=== PATIENT | female | born 1995 | race Caucasian/White ===

== ENCOUNTER 2021-04-02 08:19 | Emergency (ER) | payer OTHER, SELFPAY ==
[2021-04-02 08:25] VITALS: BP 142/99; PULSE 79; RESP 16; TEMP 36.6; O2SAT 99
--- NOTE | 2021-04-02 08:43 | ED.EAR ---
HPI - Ear Problem General Chief complaint: Ear Stated complaint: ear pain and tooth pain Source: patient Mode of arrival: ambulatory Limitations: no limitations History of Present Illness HPI Narrative: Patient is a 25-year-old female who presents complaining of bilateral ear pain. She reports decreased hearing and right ear. She reports using [id number] ear medication for pain. She denies fever. She reports taking ibuprofen. She denies significant medical history. She denies all other complaints at this time. MD Complaint: ear pain and decreased hearing Related Data Home Medications Medication Instructions Recorded Confirmed norethindrone-e.estradiol-iron 1 tablet PO DAILY 04/02/21 04/02/21 [06/09 (28)] Allergies Allergy/AdvReac Type Severity Reaction Status Date / Time amoxicillin Allergy Mild Unknown Verified 04/02/21 08:47 erythromycin base Allergy Mild [place], Verified 04/02/21 08:47 CHILD Penicillins Allergy Mild UNKNOWN, Verified 04/02/21 08:47 CHILD Review of Systems Review of Systems: CONSTITUTIONAL: Denies fever, chills, or sweats. EYES: Denies visual changes, redness, or discharge. ENT: Reports bilateral ear discomfort, decreased hearing and right ear CARDIOVASCULAR: Denies chest pain, palpitations, or edema. RESPIRATORY: Denies cough or dyspnea. GASTROINTESTINAL: Denies abdominal pain, nausea, vomiting, or diarrhea. GENITOURINARY: Denies dysuria or hematuria. SKIN: Denies rash or itching. MUSCULOSKELETAL: Denies back pain, joint pain, or myalgia. NEUROLOGIC: Denies headache, numbness, dizziness, or weakness. PSYCHIATRIC: Denies anxiety or depression. [facility] Social History Social History (Updated 04/02/21 @ 08:53 by KATIE Beard) Smoking status: Never smoker Alcohol intake: never Substance use: never Living arrangements: with family Comments At the time of signature, I have reviewed and agree with nursing past medical, surgical, social, and family history unless otherwise noted. Please see nursing chart for further information. There is no relevant family history pertinent to the presenting complaint. Exam Narrative: GENERAL: Well-appearing, well-nourished, and in no acute distress. HEAD: Normocephalic, atraumatic. EYES: EOMI. No redness or drainage. Conjunctiva are normal. ENT: Mucous membranes pink and moist. Cerumen impaction in bilateral ears, unable to visualize TM bilaterally at this time. NECK: AROM. Supple. No lymphadenopathy. CHEST: No respiratory distress. HEART: Regular rate and rhythm. EXTREMITIES: Normal range of motion. SKIN: Warm, dry, no rash. NEURO: No focal deficits. Alert and oriented x3. Gait steady. PSYCH: Normal affect. No signs of depression or anxiety. Course Vital Signs Vital signs: Vital Signs Temperature 36.6 C 04/02/21 08:25 Pulse Rate 79 04/02/21 08:25 Respiratory Rate 16 04/02/21 08:25 Blood Pressure 142/99 H 04/02/21 08:25 Pulse Oximetry 99 04/02/21 08:25 Temperature 36.6 C 04/02/21 08:25 Pulse Rate 79 04/02/21 08:25 Respiratory Rate 16 04/02/21 08:25 Blood Pressure 142/99 H 04/02/21 08:25 Pulse Oximetry 99 04/02/21 08:25 Reviewed-patient is informed that they may have pre-hypertension or hypertension based on a blood pressure reading. I recommend the patient call the primary care provider listed on their discharge instructions or a physician of their choice this week to arrange follow-up for further evaluation of possible pre-hypertension or hypertension. Procedures Ear Wax Removal Both Ears: Ear Wax Removal Date: 04/02/21 Results: Re-examined: cerumen removed completely TM Examination: TM(s) intact, normal appearance Ear Canal Exam: atraumatic Patient Tolerated Procedure: well Complications: no problems Technique: ear canal irrigated and ear canal curetted Additional Comments: Right otitis media noted, right T
[2021-04-02] MEDS: KETOROLAC (*BKC) 60 MG/2 ML VIAL IM (09:12)
== END 2021-04-02 09:35 | disposition home or self-care (01) ==
PROVIDERS: Emergency Provider Nurse Practitioner
DX: H61.23 Impacted cerumen, bilateral (principal); H66.001 Acute suppurative otitis media without spontaneous rupture of ear drum, right ear
CPT/HCPCS: 69210; 96372; 99213; G0463; J1885